=== PATIENT | male | born 1985 | race Caucasian/White ===

== ENCOUNTER 2016-12-25 01:45 | Emergency (ER) | payer MEDICAID ==
[~2016-12-25 01:45] MED LIST: CEFAZOLIN 1000MG PREMIX 50 ML IV ONE; MORPHINE SULFATE 4 MG/ML CPJ (NOT FOR IM USE) IV STA; ONDANSETRON 4MG ODT PO STA; SODIUM CHLORIDE 0.9% 1,000 ML IV ONE
[2016-12-25] MEDS ORDERED: ONDANSETRON HCL 4MG/2ML VIAL IV ONE (02:00)
[2016-12-25] MEDS ORDERED: TETANUS, DIPHTHERIA, PERTUSSIS VAC/PF 0.5ML (>7YR OLD) IM ONE (02:00)
[2016-12-25 02:29] LABS: BASOPHILS % 0.3 % (0.0-2.0); EOSINOPHILS % 1.3 % (0.0-5.0); HEMATOCRIT. 35.4 % (42.0-52.0); LYMPHOCYTES % 35.6 % (20.0-50.0); MEAN CORPUSCULAR VOLUME 91.1 fL (80.0-94.0); MEAN PLATELET VOLUME 8.8 fl (7.4-10.4); MONOCYTES % 7.3 % (2.0-8.0); NEUTROPHILS % 55.5 % (40.0-76.0); PLATELET 242 x1000/uL (130-400); RED BLOOD CELL COUNT 3.88 mill/uL (4.7-6.1); RED CELL DISTRIBUTION WIDTH 13.9 % (11.6-14.6)
[2016-12-25 02:32] LABS: INR 1.1; PROTHROMBIN TIME 11.2 sec
[2016-12-25 02:40] LABS: CARBON DIOXIDE 25 mEq/L (21-32); CHLORIDE 109 mEq/L (98-107)
[2016-12-25 04:27] VITALS: BP 150/87
== END 2016-12-25 06:39 | disposition short-term general hospital (02) ==
LOC: ER 01:46
DX: S42.402B Unspecified fracture of lower end of left humerus, initial encounter for open fracture (principal); W34.00XA Accidental discharge from unspecified firearms or gun, initial encounter; Y93.89 Activity, other specified; Y92.89 Other specified places as the place of occurrence of the external cause; Y99.8 Other external cause status
CPT/HCPCS: 36415; 73080; 80053; 85025; 85610; 90471; 90715; 96365; 96375; 99285; J0690; J2270; J2405; Z7610; J7030

== ENCOUNTER 2017-03-27 22:10 | Emergency (ER) | payer SELFPAY ==
[~2017-03-27] VITALS: Ht 185.4 cm; Wt 90.0 kg
[2017-03-27] MEDS ORDERED: ONDANSETRON HCL 4MG/2ML VIAL IV STA (22:53)
[2017-03-27] MEDS ORDERED: SODIUM CHLORIDE 0.9% 1,000 ML IV ONE (22:53)
[2017-03-27] MEDS ORDERED: MORPHINE SULFATE 4 MG/ML CPJ (NOT FOR IM USE) IV STA (22:53)
[2017-03-27] MEDS ORDERED: TETANUS, DIPHTHERIA, PERTUSSIS VAC/PF 0.5ML (>7YR OLD) IM ONE (23:00)
[2017-03-27] MEDS ORDERED: BACITRACIN ZINC OINT UDPKT TOP ONE ×2 (23:00)
[2017-03-27] MEDS ORDERED: CEFAZOLIN 1000MG PREMIX 50 ML IV ONE (23:00)
[2017-03-27] MEDS ORDERED: LIDOCAINE HCL 1% 20ML VIAL (Pyxis) INJ INJ ONE (23:00)
[2017-03-27 23:27] LABS: BASOPHILS % 0.3 % (0.0-2.0); EOSINOPHILS % 0.3 % (0.0-5.0); HEMATOCRIT. 38.1 % (42.0-52.0); HEMOGLOBIN. 12.6 g/dL (14.0-18.0); LYMPHOCYTES % 7.3 % (20.0-50.0); MEAN CORPUSCULAR HEMOGLOBIN 28.1 pg (28.0-32.0); MEAN PLATELET VOLUME 9.1 fl (7.4-10.4); MONOCYTES % 9.7 % (2.0-8.0); NEUTROPHILS % 82.4 % (40.0-76.0); PLATELET 238 x1000/uL (130-400); RED BLOOD CELL COUNT 4.48 mill/uL (4.7-6.1)
[2017-03-27 23:33] LABS: CHLORIDE 104 mEq/L (98-107)
[2017-03-27 23:41] LABS: CARBON DIOXIDE 25 mEq/L (21-32)
[2017-03-28] MEDS ORDERED: IOHEXOL-300 100 ML BOTTLE ONE (01:00)
[2017-03-28 06:45] VITALS: BP 141/70
== END 2017-03-28 07:02 | disposition home or self-care (01) ==
LOC: ER 22:29
DX: S09.8XXA Other specified injuries of head, initial encounter (principal); S27.0XXA Traumatic pneumothorax, initial encounter; S01.01XA Laceration without foreign body of scalp, initial encounter; S16.1XXA Strain of muscle, fascia and tendon at neck level, initial encounter; Y04.8XXA Assault by other bodily force, initial encounter; X99.8XXA Assault by other sharp object, initial encounter; Y93.89 Activity, other specified; Y92.89 Other specified places as the place of occurrence of the external cause; J32.9 Chronic sinusitis, unspecified
CPT/HCPCS: 12004; 36415; 70450; 71010; 71260; 72125; 74177; 80048; 85025; 86850; 86900; 86901; 96365; 96375; 99291; J0690; J2270; J2405; J3490; Q9967; Z7610; 90715; J7030